=== PATIENT | female | born 1990 | race Two or more races ===

== ENCOUNTER 2024-03-19 13:28 | Emergency (ER) | payer OTHER ==
[~2024-03-19] VITALS: Ht 152.4 cm; Wt 76.2 kg
[2024-03-19 13:52] VITALS: TEMP 97.4
[2024-03-19] MEDS ORDERED: KETOROLAC TROMETHAMINE INJ 30 MG/ML VIAL ONE (16:53)
[2024-03-19] MEDS: KETOROLAC TROMETHAMINE INJ 60 MG/2 ML VIAL IM ONE (17:00)
[2024-03-19 17:05] VITALS: BP 135/85; O2SAT 97
== END 2024-03-19 17:06 | disposition home or self-care (01) ==
LOC: ER 13:28
DX: M25.561 Pain in right knee (principal); Z98.890 Other specified postprocedural states; Z60.2 Problems related to living alone; W01.0XXA Fall on same level from slipping, tripping and stumbling without subsequent striking against object, initial encounter; Y93.89 Activity, other specified; Y92.89 Other specified places as the place of occurrence of the external cause; Y99.8 Other external cause status
CPT/HCPCS: 99284; 96372; 72100; 72070; 73562; J1885